=== PATIENT | male | born 2000 | race Caucasian/White ===

== ENCOUNTER 2020-07-12 12:05 | Emergency (ER) | payer OTHER ==
[~2020-07-12] VITALS: Ht 190.5 cm; Wt 77.3 kg
[2020-07-12] MEDS ORDERED: KETO30IN4 IM (12:21)
[2020-07-12] MEDS ORDERED: ACETAMINOPHEN 325 MG TAB PO ONE (13:05)
--- NOTE | 2020-07-12 13:06 | REP ---
INDICATION: low back pain while doing PT box jumps. COMPARISON: None. TECHNIQUE: Five views lumbosacral spine. FINDINGS: There is no fracture or dislocation. The vertebral bodies normal in height and well aligned with normal lumbar lordosis. Disc spaces are well preserved. Posterior elements are intact. IMPRESSION: Negative lumbosacral spine series, no fracture or dislocation. <Electronically signed by Binu Lopez > 07/12/20 [id number]
[2020-07-12] MEDS ORDERED: LIDO5DIS41 TOP (13:19)
[2020-07-12] MEDS ORDERED: CYCL-707 PO (13:19)
[2020-07-12 13:36] VITALS: BP 133/71
== END 2020-07-12 13:42 | disposition home or self-care (01) ==
LOC: M ED 12:05
DX: S39.012A Strain of muscle, fascia and tendon of lower back, initial encounter (principal); X58.XXXA Exposure to other specified factors, initial encounter; Y92.89 Other specified places as the place of occurrence of the external cause